=== PATIENT | female | born 1950 | race Caucasian/White ===

== ENCOUNTER 2017-05-02 18:35 | Emergency (ER) | payer MEDICARE, BC ==
[2017-05-02] MEDS ORDERED: Sodium Chloride 0.9% 1,000 ML IV SCH (19:00)
[2017-05-02] MEDS ORDERED: Sodium Chloride 0.9% 10 ML Syringe FLUSH PRN (19:26)
[2017-05-02] MEDS ORDERED: Sodium Chloride 0.9% 80 ML IV ONE (19:26)
[2017-05-02] MEDS ORDERED: Iopamidol 612 MG/ML 100 ML Bottle IV PRN (19:26)
[2017-05-02 20:23] VITALS: BP 162/85
--- NOTE | 2017-05-02 21:34 | EDM.PDOC ---
ED HPI GENERAL MEDICAL PROBLEM - General Chief Complaint: Chest Pain Stated Complaint: BILE/ACID IN MOUTH LAST NIGHT Time Seen by Provider: 05/02/17 18:47 Source of Information: Reports: Patient History Limitations: Reports: No Limitations - History of Present Illness INITIAL COMMENTS - FREE TEXT/NARRATIVE: History of present illness: [66-year-old female presenting with left upper chest pain pleuritic in nature. She had been seen in [place] and cardiac cause had been ruled out. They suggested that she come here he cause she had a gastric bypass back in 2004 Dr. Tom and that they were wondering if perhaps she was having trouble with that. She's having reflux and feels like she may have aspirated and has not been treated for this and no recommendations have been made to her as far as how to treat it. Her pain is in the left upper chest pleuritic nature in that it is worsened by taking a deep breath or coughing. It's a sharp stabbing pain. She also describes having trouble with reflux at night when she lays down and she fears that she is going to become hypoglycemic at night because of her her gastric bypass so she always eats before she goes to bed.] Review of systems: As per history of present illness and below otherwise all systems reviewed and negative. Past medical history: As per history of present illness and as reviewed below otherwise noncontributory. Surgical history: As per history of present illness and as reviewed below otherwise noncontributory. Social history: No reported history of drug or alcohol abuse. Family history: As per history of present illness and as reviewed below otherwise noncontributory. Physical exam: HEENT: Atraumatic, normocephalic, pupils reactive, negative for conjunctival pallor or scleral icterus, mucous membranes moist, throat clear, neck supple, nontender, trachea midline. Lungs: Clear to auscultation, breath sounds equal bilaterally, chest nontender. Heart: S1S2, regular, negative for clicks, rubs, or JVD. Abdomen: Soft, nondistended, nontender. Negative for masses or hepatosplenomegaly. Negative for costovertebral tenderness. Pelvis: Stable nontender. Genitourinary: Deferred. Rectal: Deferred. Extremities: Atraumatic, negative for cords or calf pain. Neurovascular unremarkable. Neuro: Awake, alert, oriented. Cranial nerves II through XII unremarkable. Cerebellum unremarkable. Motor and sensory unremarkable throughout. Exam nonfocal. Diagnostics: [CBC and complete metabolic panel were done and also a chest CT and abdomen and pelvis and the most revealing finding is a patch of atelectasis in her left upper lung and this corresponds with the location of her pain. This may also represent an infiltrate from aspiration.] Therapeutics: [] Impression: [Pneumonia from aspiration left upper lobe] Plan: [Augmentin 875 twice a day for 10 days. I'm also recommending she try him see Dr. Tom regarding her reflux to see if there is something that could be done to help with that. We discussed raising the head of her bed etc. and other measures to minimize the chance of her having reflux and aspiration.] Definitive disposition and diagnosis as appropriate pending reevaluation and review of above. Middle Throat Pain Score (Numeric/FACES): 2 - Related Data Allergies Allergy/AdvReac Type Severity Reaction Status Date / Time ciprofloxacin [From Cipro] Allergy Other Verified 05/02/17 19:25 erythromycin base Allergy Nausea and Verified 05/02/17 19:25 Vomiting ibuprofen [From Motrin] Allergy Stomach Verified 05/02/17 19:25 Upset naproxen [From Naprosyn] Allergy Nausea and Verified 05/02/17 19:25 Vomiting tetanus and diphtheria Allergy Anaphylactic Verified 05/02/17 19:25 toxoids Shock tape Allergy Hives Uncoded 05/02/17 19:25 Home Meds: Home Meds Acetaminophen [Tylenol Extra Strength] 1,000 mg PO Q12H PRN 05/02/17 [History] Aspirin 325 mg PO ASDIRECTED 05/02/17 [History] Ciclopirox/Skin Cleanser No.28 [Ciclodan 0.77% Cream Kit] 544 gm TP BID [History] Docusate Calcium [Surfak] 240 mg PO BID 05/02/17 [History] Ferrous Gluconate 324 mg PO TID 05/02/17 [History] Flecainide [Tambocor] 50 mg PO BID 05/02/17 [History] Fluocinonide [Lidex 0.05% Crm] 1 applic TOP DAILY 05/02/17 [History] Fluticasone Propionate [Flonase] 1 spray NASBOTH BID 05/02/17 [History] Gabapentin [Neurontin] 300 mg PO BEDTIME 05/02/17 [History] Glucosamine/D3/Boswellia Elva [Osteo Bi-Flex Caplet] 1 tab PO BID 05/02/17 [ History] Levothyroxine [Synthroid] 88 mcg PO ACBREAKFAST 05/02/17 [History] Lidocaine 5% [Lidoderm 5%] 1 patch TOP DAILY PRN 05/02/17 [History] Magnesium Oxide 250 mg PO BID 05/02/17 [History] Multivitamin with Minerals [Multiple Vitamin] 1 tab PO DAILY 05/02/17 [History] Ranitidine [Zantac] 150 mg PO BID 05/02/17 [History] Venlafaxine [Effexor] 75 mg PO BID 05/02/17 [History] Vitamin B Complex with C [Super B Complex With C] 1 cap PO DAILY 05/02/17 [ History] traMADol HCl [Tramadol HCl] 50 mg PO Q6H PRN 05/02/17 [History] Social & Family History - Tobacco Use Smoking Status *Q: Current Status Unknown - Caffeine Use Caffeine Use: Reports: Coffee - Recreational Drug Use Recreational Drug Use: No ED ROS GENERAL - Review of Systems Review Of Systems: ROS reveals no pertinent complaints other than HPI. ED EXAM, GENERAL - Physical Exam Exam: See Below Course - Vital Signs Last Recorded V/S: Last Vital Signs Temp 36.4 C 05/02/17 18:50 Pulse 56 L 05/02/17 20:22 Resp 13 05/02/17 20:22 BP 162/85 H 05/02/17 20:22 Pulse Ox 98 05/02/17 20:22 - Orders/Labs/Meds Orders: Active Orders 24 hr Category Date Time Status Chest Abdomen Pelvis w Cont [CT] Stat Exams 05/02/17 18:59 Taken Sodium Chloride 0.9% [Normal Saline] 1,000 ml Med 05/02/17 19:00 Active IV ASDIRECTED Sodium Chloride 0.9% [Saline Flush] Med 05/02/17 19:26 Active 10 ml FLUSH ONETIME PRN Medication Orders Sodium Chloride (Normal Saline) 1,000 mls @ 250 mls/hr IV ASDIRECTED CASI Last Admin: 05/02/17 20:32 Dose: 250 mls/hr Sodium Chloride (Saline Flush) 10 ml FLUSH ONETIME PRN PRN Reason: PER RADIOLOGY PROTOCOL Last Admin: 05/02/17 20:15 Dose: 10 ml Labs: Laboratory Tests 05/02/17 05/02/17 Range/Units 18:57 18:57 WBC 6.4 (4.5-11.0) K/uL RBC 4.65 (3.30-5.50) M/uL Hgb 13.3 (12.0-15.0) g/dL Hct 39.8 (36.0-48.0) % MCV 86 (80-98) fL MCH 29 (27-31) pg MCHC 33 (32-36) % Plt Count 193 (150-400) K/uL Neut % (Auto) 63 (36-66) % Lymph % (Auto) 23 L (24-44) % [place] % (Auto) 9 H (2-6) % Eos % (Auto) 3 (2-4) % Baso % (Auto) 1 (0-1) % Sodium 143 (140-148) mmol/L Potassium 4.0 (3.6-5.2) mmol/L Chloride 104 (100-108) mmol/L Carbon Dioxide 32 (21-32) mmol/L Anion Gap 6.9 (5.0-14.0) mmol/L BUN 18 (7-18) mg/dL Creatinine 0.8 (0.6-1.0) mg/dL Est Cr Clr Drug Dosing 69.78 mL/min Estimated GFR (MDRD) > 60 (>60) Glucose 100 (74-106) mg/dL Calcium 9.0 (8.5-10.1) mg/dL Total Bilirubin 0.3 (0.2-1.0) mg/dL AST 24 (15-37) U/L ALT 30 (12-78) U/L Alkaline Phosphatase 104 (46-116) U/L Total Protein 7.0 (6.4-8.2) g/dL Albumin 3.6 (3.4-5.0) g/dL Globulin 3.4 (2.3-3.5) g/dL Albumin/Globulin Ratio 1.1 L (1.2-2.2) Amylase 32 (25-115) U/L Lipase 113 (73-393) U/L Meds: Medications Generic Name Dose Route Start Last Admin Trade Name Freq PRN Reason Stop Dose Admin Sodium Chloride 1,000 mls @ 250 mls/hr 05/02/17 19:00 05/02/17 20:32 Normal Saline IV 250 mls/hr ASDIRECTED CASI Administration Sodium Chloride 10 ml 05/02/17 19:26 05/02/17 20:15 Saline Flush FLUSH 10 ml ONETIME PRN Administration PER RADIOLOGY PROTOCOL Discontinued Medications Generic Name Dose Route Start Last Admin Trade Name Simoneq PRN Reason Stop Dose Admin Sodium Chloride 80 mls @ 3 mls/sec 05/02/17 19:26 05/02/17 20:15 Normal Saline IV 05/02/17 19:27 3 mls/sec ONETIME ONE Administration Iopamidol 100 ml 05/02/17 19:26 05/02/17 20:15 Isovue-300 (61%) IV 05/02/17 19:27 100 ml . DIRECTED PRN Administration RADIOLOGY EXAM Departure - Departure Time of Disposition: 21:34 Disposition: Home, Self-Care 01 Condition: Good Clinical Impression: Aspiration pneumonia Qualifiers: Aspiration pneumonia type: due to regurgitated food Laterality: left Lung location: upper lobe of lung Qualified Code(s): J69.0 - Pneumonitis due to inhalation of food and vomit - Discharge Information Forms: ED Department Discharge Additional Instructions: As we discussed I think it might be worthwhile for you to try to get in to see Dr. Tom to discuss the problem here having with reflux. At least try to talk to his nurse and see if she has any recommendations about this. If you need a referral here primary care doctor could do this for you. - My Orders Last 24 Hours: My Active Orders 05/02/17 18:59 Chest Abdomen Pelvis w Cont [CT] Stat 05/02/17 19:00 Sodium Chloride 0.9% [Normal Saline] 1,000 ml IV ASDIRECTED 05/02/17 19:26 Sodium Chloride 0.9% [Saline Flush] 10 ml FLUSH ONETIME PRN - Assessment/Plan Last 24 Hours: My Active Orders 05/02/17 18:59 Chest Abdomen Pelvis w Cont [CT] Stat 05/02/17 19:00 Sodium Chloride 0.9% [Normal Saline] 1,000 ml IV ASDIRECTED 05/02/17 19:26 Sodium Chloride 0.9% [Saline Flush] 10 ml FLUSH ONETIME PRN
== END 2017-05-02 22:40 | disposition home or self-care (01) ==
LOC: JP.ED 18:35
DX: J69.0 Pneumonitis due to inhalation of food and vomit (principal); Z79.899 Other long term (current) drug therapy; Z88.7 Allergy status to serum and vaccine; Z91.09 Other allergy status, other than to drugs and biological substances; Z88.1 Allergy status to other antibiotic agents; Z88.6 Allergy status to analgesic agent
CPT/HCPCS: 36415; 71260; 74177; 80053; 82150; 83690; 85025; 96360; 96361; 99285; J7030; J7040; J7050; Q9967; 99283

== ENCOUNTER 2017-05-13 06:12 | Day surgery (SDC) | payer MEDICARE, BC ==
[2017-05-13] MEDS ORDERED: Dextrose 5%-Lactated Ringers 1,000 ML IV SCH (06:30)
[2017-05-13] MEDS ORDERED: Propofol 200 MG/20 ML SDV ONE (06:53)
[2017-05-13] MEDS ORDERED: fentaNYL 100 MCG/2 ML SDV ONE (06:53)
[2017-05-13] MEDS ORDERED: Midazolam 1 MG/ML 2 ML SDV ONE (06:53)
[2017-05-13] MEDS ORDERED: Glycopyrrolate 0.2 MG/ML 2 ML SYRINGE IVPUSH ONE (07:00)
[2017-05-13] MEDS ORDERED: Glycopyrrolate 0.2 MG/ML 2 ML SDV IVPUSH ONE (07:15)
[2017-05-13 09:05] VITALS: BP 145/85
--- NOTE | 2017-05-16 15:01 | OR ---
DATE OF PROCEDURE: 05/13/2017 PREOPERATIVE DIAGNOSIS: Dysphagia and epigastric pain status post gastric bypass. POSTOPERATIVE DIAGNOSIS: Mild inflammation and edema at the gastric pouch and gastrojejunostomy. OPERATIVE PROCEDURES: Upper GI endoscopy with: 1. Dilation of gastrojejunostomy (02746). 2. Biopsies of gastric pouch for CLOtest ([id number]). ANESTHESIA: IV sedation. INDICATION FOR PROCEDURE: The patient is status post Melly-en-Y gastric bypass in 2005. She presently is complaining of some dysphagia, epigastric pain, and some heartburn. Our plan is to proceed with upper GI endoscopy with biopsies and dilation as indicated. Potential risks including bleeding and perforation were discussed, and the patient wishes to proceed. DETAILS OF THE PROCEDURE: The patient was taken to the operating room and placed in a left lateral decubitus position. IV sedation was administered, after which the upper GI endoscope was passed orally through the length of the esophagus and into the gastric pouch, from there through the gastrojejunostomy, roughly 20 cm into the Melly limb. Esophagus and EG junction areas were noted to be unremarkable. There was some mild edema and redness of the pouch and gastrojejunostomy. There is no true ulceration and no stricturing at the gastrojejunostomy. The Melly limb beyond the gastrojejunostomy was unremarkable. At this point, a 54-[place] balloon dilator was placed across the gastrojejunostomy. This resulted essentially in no additional stretching, as this was already fairly wide open, biopsy was obtained from the gastric pouch, sent for CLOtest for H. pylori. Minimal bleeding from the biopsy sites was seen and the procedure was then concluded. The patient was taken to the recovery room in a satisfactory condition. The plan will be to begin the patient on Protonix 40 mg a day x30 days and we'll call that in. She will be following up with Patricia Noriega in one month. Salas Tom MD /[id number]
== END 2017-05-13 09:32 | disposition home or self-care (01) ==
LOC: JP.SDS 06:12
PROVIDERS: ATTEND Surgery
DX: K95.89 Other complications of other bariatric procedure (principal); K29.70 Gastritis, unspecified, without bleeding; K21.9 Gastro-esophageal reflux disease without esophagitis; Z88.1 Allergy status to other antibiotic agents; Z88.8 Allergy status to other drugs, medicaments and biological substances; Z91.09 Other allergy status, other than to drugs and biological substances
CPT/HCPCS: 43239; 43245; 87081; J2250; J2704; J3010; J7042; J3490